=== PATIENT | male | born 1980 | race Asian ===

== ENCOUNTER → 2016-09-07 | Day surgery (SDC) | payer OTHER ==
[~2016-09-07] MED LIST: BUPIVACAINE HCL PF 0.5% 10 ML VIAL ONE; LACTATED RINGER'S 1000 ML INJ 1,000 ML ONE; LIDOCAINE HCL 1% 50 ML VIAL ONE; MIDAZOLAM HCL 2 MG/2 ML VIAL ONE; NEOMYCIN/POLYMYXIN/BACITRACIN OINT 15 GM TUBE ONE; ONDANSETRON HCL 4 MG/2 ML VIAL IV PUSH ONE; PROPOFOL 200 MG/20 ML AMP IV ONE; ceFAZolin INJ 1,000 MG VIAL ONE
--- NOTE | 2016-09-07 11:39 | TN ---
cc: SETH ZUÑIGA M.D. DATE OF SURGERY 09/07/2016 PREOPERATIVE DIAGNOSIS 1. Recurrent balanitis ICD-10 code N48.1) 2. Phimosis (ICD-10 code N47.1) POSTOPERATIVE DIAGNOSIS 1. Recurrent balanitis ICD-10 code N48.1) 2. Phimosis (ICD-10 code N47.1) SURGERY Circumcision (CPT code 46816) INDICATIONS Mr. Aguilera is a 35-year-old diabetic gentleman with recurrent balanitis and phimosis who presents now for elective circumcision to resolve these two issues. FINDINGS The findings were normal penis and foreskin. PROCEDURE The procedure as well as the risks and benefits were explained to the patient. Informed consent was obtained. The patient was taken to the major operative theater where he was placed in a supine position. The patient was identified as well as the operative site. [place] time-out was performed in standard fashion. At this time general anesthetic and prophylactic intravenous antibiotics consisting of Ancef 1 gram were administered. After adequate anesthetic, a penile block was performed in standard fashion using 1% lidocaine and 0.25% Marcaine plain. At this time with the prepuce in the unretracted state, a sterile skin marker was used to yoh[place] the area outlining the coronal sulcus and then in the retracted state about a centimeter below the coronal sulcus on the distal shaft of penis, similar markings were made. Then using an 11 blade scalpel, these areas were incised and using meticulous hemostasis with pinpoint electrocautery hemostasis was maintained throughout the case. This sleeve of tissue was then dissected off. At this time again after adequate hemostasis interrupted 3-0 chromic sutures were placed circumferentially after first using quadrant tags. Once there was good apposition of the skin and confirmed hemostasis, a Xeroform gauze was placed and dry dressings around this. The patient emerged from anesthetic without difficulty and transferred to the recovery room in stable condition to be discharged when criteria is met. There are no obvious complications. The sponge and needle counts were of course correct at the end of the case. MD JENA Manzanares/MIAH /11:05 AM /11:32 AM
== END | disposition home or self-care (01) ==
LOC: ESDC 07:40
PROVIDERS: ATTEND Urology
DX: N48.1 Balanitis (principal); N47.1 Phimosis; E11.9 Type 2 diabetes mellitus without complications
CPT/HCPCS: J0690; J2250; J2405; J3010; J7120